=== PATIENT | female | born 1995 | race Caucasian/White ===

== ENCOUNTER 2017-08-24 00:06 | Emergency (ER) | payer BC ==
[~2017-08-24] VITALS: Ht 167.6 cm; Wt 58.3 kg
[2017-08-24 00:10] VITALS: Ht 167.6 cm; Wt 58.3 kg
[2017-08-24] MEDS ORDERED: BCPILLS PO (00:27)
--- NOTE | 2017-08-24 00:35 | EMERGENCY ROOM VISIT NOTE ---
History Report prepared by Jessee: Bethanie Ureña Under the Supervision of: Dr. Sammie Mcelroy M.D. First contact with patient: 00:14 Chief Complaint: ABDOMINAL PAIN Stated Complaint: SHARP PAIN IN SIDE,GETTING WORSE,BURNING W URINATI History of Present Illness The patient is a 22 year old female who presents to the Emergency Room with complaints of worsening right lower abdominal pain starting 2-2.5 hours ago. She describes the pain as sharp like someone is pushing on her abdomen. The pain started in the center of her abdomen and moved lower. She started having burning with urination 1 hour ago. She is also urinating more frequently. She did not have a fever when she checked 1.5 hours ago. She denies any chance of . Her period started today. She normally does not have any cramping with her period. Source of History: patient Onset: 2-2.5 hours ago Position: abdomen (RLQ) Quality: sharp Timing: worsening Associated Symptoms: + urinary symptoms, No fevers Review of Systems See HPI for pertinent positives & negatives. A total of 10 systems reviewed and were otherwise negative. Past Medical & Surgical Medical Problems: (1) No chronic problems Family History No pertinent family history stated. Social History Smoking Status: Never Smoker Marital Status: single Occupation Status: [employer] student Current/Historical Medications Scheduled Control Pills ( Control Pills), 1 TAB PO DAILY Ciprofloxacin Hcl (Cipro), 500 MG PO BID Scheduled PRN Phenazopyridine HCl (Pyridium), 200 MG PO TID PRN for Pain Allergies Coded Allergies: Penicillins (Verified Allergy, Unknown, rash, 08/24/17) Physical Exam Vital Signs Date Time Temp Pulse Resp B/P (MAP) Pulse Ox O2 Delivery O2 Flow Rate FiO2 08/24/17 04:04 37.0 90 18 112/74 100 Room Air 08/24/17 02:15 36.8 95 18 110/76 100 Room Air 08/24/17 00:10 37.0 102 18 116/81 100 Room Air Physical Exam Vital signs reviewed. General: Well-appearing female, in no significant distress. HEENT: No scleral icterus, PERRLA, neck supple. Atraumatic. Cardiovascular: Regular rate and rhythm, no extra sounds. Pulmonary: Clear to auscultation bilaterally, normal work of breathing. Abdomen: Soft, tender in the RLQ, nondistended, positive bowel sounds. Musculoskeletal: Atraumatic, no peripheral edema. Neurologic: Patient awake alert and oriented x 3 Skin: Warm, dry, no rash Medical Decision & Procedures ER Provider Diagnostic Interpretation: Radiology results as stated below per my review and [facility] radiologist interpretation: US Pelvic/Endovag: Anteflexed uterus measuring 7.9 x 2.7 x 4.0 cm. Endometrium measures 2 mm in thickness. No focal myometrial lesion. Nonspecific small amount of fluid in the cervix. Right ovary measures 2.7 x 2.6 x 1.3 cm with multiple follicles. Normal color Doppler flow. Left ovary measure 1.5 x 1.6 x 0.9 cm. Multiple follicles. Normal color Doppler flow. Nonspecific small amount of fluid in the right adnexa and cul-de-sac which could be physiologic. No adnexal mass. US Appendix: Appendix not visualized. No free fluid. Acute appendicitis cannot be entirely excluded on the basis of this exam alone. Further evaluation could be performed with CT or MRI if clinically indicated. CT Abdomen & Pelvis with Contrast: Punctate 2 mm nodule in the left lower lobe, possible calcified. Probable scarring in the right kidney with mild right hydroureter and suggestion of urothelial thickening and enhancement. No definite obstructing stone identified. Superimposed infection cannot be excluded. Bladder wall thickening. Please correlate with urinalysis to evaluate for cystitis. Air-fluid levels in the small bowel are nonspecific. Enteritis cannot be excluded. The appendix is difficult to definitively identify, but no evidence of inflammation to suggest acute appendicitis. Laboratory Results 08/24/17 00:30 Red Blood Count 4.39, Mean Corpuscular Volume 89.1, Mean Corpuscular Hemoglobin 30.1, Mean Corpuscular Hemoglobin Concent 33.8, Mean Platelet Volume 9.2, Neutrophils (%) (Auto) 78.5, Lymphocytes (%) (Auto) 14.6, Monocytes (%) (Auto) 6.0, Eosinophils (%) (Auto) 0.6, Basophils (%) (Auto) 0.2, Neutrophils # (Auto) 8.26, Lymphocytes # (Auto) 1.53, Monocytes # (Auto) 0.63, Eosinophils # (Auto) 0.06, Basophils # (Auto) 0.02 08/24/17 00:30 Test 08/24/17 00:20 08/24/17 00:30 08/24/17 02:44 Urine RBC >30 /hpf (0-4) Urine WBC >30 /hpf (0-5) Urine Epithelial Cells >30 /lpf (0-5) Urine Bacteria 1+ (NEG) Urine Test NEG (NEG) White Blood Count 10.51 K/uL (4.8-10.8) Red Blood Count 4.39 M/uL (4.2-5.4) Hemoglobin 13.2 g/dL (12.0-16.0) Hematocrit 39.1 % (37-47) Mean Corpuscular Volume 89.1 fL (80-100) Mean Corpuscular Hemoglobin 30.1 pg (25-34) Mean Corpuscular Hemoglobin Concent 33.8 g/dl (32-36) Platelet Count 239 K/uL (130-400) Mean Platelet Volume 9.2 fL (7.4-10.4) Neutrophils (%) (Auto) 78.5 % Lymphocytes (%) (Auto) 14.6 % Monocytes (%) (Auto) 6.0 % Eosinophils (%) (Auto) 0.6 % Basophils (%) (Auto) 0.2 % Neutrophils # (Auto) 8.26 K/uL (1.4-6.5) Lymphocytes # (Auto) 1.53 K/uL (1.2-3.4) Monocytes # (Auto) 0.63 K/uL (0.11-0.59) Eosinophils # (Auto) 0.06 K/uL (0-0.5) Basophils # (Auto) 0.02 K/uL (0-0.2) RDW Standard Deviation 42.0 fL (36.4-46.3) RDW Coefficient of Variation 12.9 % (11.5-14.5) Immature Granulocyte % (Auto) 0.1 % Immature Granulocyte # (Auto) 0.01 K/uL (0.00-0.02) Anion Gap 11.0 mmol/L (3-11) Est Creatinine Clear Calc Drug Dose 95.2 ml/min Estimated GFR () 111.9 Estimated GFR (Non- 96.6 BUN/Creatinine Ratio 13.8 (10-20) Calcium Level 8.5 mg/dl (8.5-10.1) Total Bilirubin 0.3 mg/dl (0.2-1) Direct Bilirubin 0.1 mg/dl (0-0.2) Aspartate Amino Transf (AST/SGOT) 17 U/L (15-37) Alanine Aminotransferase (ALT/SGPT) 22 U/L (12-78) Alkaline Phosphatase 55 U/L (45-117) Total Protein 7.1 gm/dl (6.4-8.2) Albumin 3.9 gm/dl (3.4-5.0) Chemistry Specimen Hemolysis Urine Color YELLOW Urine Appearance CLOUDY (CLEAR) Urine pH 5.5 (4.5-7.5) Urine Specific [place] 1.012 (1.000-1.030) Urine Protein NEG (NEG) Urine Glucose (UA) NEG (NEG) Urine Ketones NEG (NEG) Urine Occult Blood 3+ (NEG) Urine Nitrite NEG (NEG) Urine Bilirubin NEG (NEG) Urine Urobilinogen NEG (NEG) Urine Leukocyte Esterase LARGE (NEG) Urine WBC (Auto) >30 /hpf (0-5) Urine RBC (Auto) 10-30 /hpf (0-4) Urine Hyaline Casts (Auto) 0 /lpf (0-5) Urine Epithelial Cells (Auto) 10-20 /lpf (0-5) Urine Bacteria (Auto) NEG (NEG) Laboratory results per my review. Medications Administered Medications (Trade) Dose Ordered Sig/Felisa Route Start Time Stop Time Status Last Admin Dose Admin Ciprofloxacin (Cipro Tab) 500 mg NOW STAT PO 08/24/17 03:35 08/24/17 03:36 DC 08/24/17 03:41 500 MG Phenazopyridine HCl (Pyridium Tab) 200 mg NOW STAT PO 08/24/17 03:35 08/24/17 03:36 DC 08/24/17 03:41 200 MG Phenazopyridine HCl (Phenazopyridine HCl 200MG Home Pack) 1 homepack UD ONCE PO 08/24/17 04:00 08/24/17 04:01 DC 08/24/17 04:00 1 HOMEPACK ED Course 0022: Past medical records reviewed. The patient was evaluated in room A10. A complete history and physical examination was performed. 0234: I reevaluated the patient. I updated her on the results. She will go for CT. 0335: Pyridium Tab 200 mg PO, Ciprofloxacin 500 mg PO. 0342: Upon reevaluation, the patient was resting comfortably. I discussed findings with her. She verbalized agreement of the treatment plan. She was discharged home. 0400: Phenazopyridine HCl 1 homepack PO. Medical Decision Differential diagnosis: Etiologies such as appendicitis, diverticulitis, PUD, biliary pathology, UTI, pancreatitis, obstruction, mesenteric ischemia, aortic pathology, infections, inflammatory bowel disease, renal colic, as well as others were entertained. This patient was evaluated and appeared to be in significant discomfort. She states she had a sudden onset of right lower quadrant abdominal tenderness with some tenderness around the umbilicus. Ultrasound of the right lower quadrant to rule out appendectomy was ordered as well as a pelvic ultrasound. test is negative. Laboratory work is fairly unrevealing. An ultrasound reveals no significant abnormality of the pelvis. CT scan of the abdomen and pelvis was performed to rule out appendicitis versus renal calculi. Urinalysis initially given was contaminated grossly with menstrual bleeding. A repeat UA was performed and is improved from the contamination standpoint. Patient likely is suffering from a UTI based on the CT scan read in the urinalysis. Patient was placed on Cipro 500 mg twice daily for 7 days. She will drink plenty of fluids, use ibuprofen as needed for pain and follow-up with her PCP or [facility] this week. She will return to the ER for worsening of symptoms or any medical concerns. Medication Reconcilliation Current Medication List: was personally reviewed by me Blood Pressure Screening Patient's blood pressure: Normal blood pressure Blood pressure disposition: Did not require urgent referral Impression Primary Impression: UTI (urinary tract infection) Scribe Attestation The scribe's documentation has been prepared under my direction and personally reviewed by me in its entirety. I confirm that the note above accurately reflects all work, treatment, procedures, and medical decision making performed by me. Departure Information Dispostion Home / Self-Care Prescriptions Phenazopyridine HCl (Pyridium) 200 Mg Tab 200 MG PO TID Y for Pain, #3 TAB Prov: Sammie Mcelroy M.D. 08/24/17 Ciprofloxacin Hcl (CIPRO) 500 Mg Tab 500 MG PO BID, #14 TAB Prov: Sammie Mcelroy M.D. 08/24/17 Referrals [facility] Forms HOME CARE DOCUMENTATION FORM, IMPORTANT VISIT INFORMATION Patient Instructions My [facility], UTI Additional Instructions Diagnosis: UTI Cipro 500 mg twice daily for 7 days. Drink plenty of clear fluids. Pyridium 200 mg every 8 hours as needed for urinary symptoms. This medication will turn tears and urine orange. Avoid contacts in the eyes. Follow up with [facility] if needed for continued symptoms Return to the ED for worsening of symptoms or any medical concerns.
[2017-08-24 00:40] LABS: BASO % 0.2 %; BASO ABS # 0.02 K/uL (0-0.2); COMPLETE YES; EOS % 0.6 %; HEMATOCRIT 39.1 % (37-47); IG% 0.1 %; LYMPH % 14.6 %; LYMPH ABS # 1.53 K/uL (1.2-3.4); MEAN CELL VOLUME 89.1 fL (80-100); MEAN CORPUSCULAR HEMOGLOBIN 30.1 pg (25-34); MEAN CORPUSCULAR HGB CONC 33.8 g/dl (32-36); MEAN PLATELET VOLUME 9.2 fL (7.4-10.4); NEUT % 78.5 %; PLATELET COUNT 239 K/uL (130-400); RED BLOOD COUNT 4.39 M/uL (4.2-5.4); WHITE BLOOD COUNT 10.51 K/uL (4.8-10.8)
[2017-08-24 00:53] LABS: MANUAL MICROSCOPIC REQUIRED? YES; URINE APPEARANCE CLOUDY (CLEAR); URINE BILIRUBIN NEG (NEG); URINE COLOR RED; URINE NITRITE NEG (NEG); URINE PH 6.5 (4.5-7.5); URINE SPECIFIC GRAVITY 1.025 (1.000-1.030); UROBILINOGEN NEG (NEG)
[2017-08-24 00:54] LABS: REVIEW REQ? NO
[2017-08-24 00:55] LABS: URINE RBC >30 /hpf (0-4); URINE WBC >30 /hpf (0-5)
[2017-08-24 00:56] LABS: URINE BACTERIA 1+ (NEG); ZZUR CULT IF INDIC CLEAN CATCH YES
[2017-08-24 01:01] LABS: BUN/CREATININE RATIO 13.8 (10-20); CALCIUM 8.5 mg/dl (8.5-10.1); CREATININE 0.86 mg/dl (0.60-1.20)
[2017-08-24 01:11] LABS: POTASSIUM 3.3 mmol/L (3.5-5.1)
[2017-08-24] MEDS ORDERED: OPTIRAY 320 IV PRN (02:45)
[2017-08-24 03:07] LABS: URINE APPEARANCE CLOUDY (CLEAR); URINE BILIRUBIN NEG (NEG); URINE COLOR YELLOW; URINE NITRITE NEG (NEG); URINE PH 5.5 (4.5-7.5); URINE SPECIFIC GRAVITY 1.012 (1.000-1.030); UROBILINOGEN NEG (NEG); ZZUR CULT IF INDIC CLEAN CATCH YES
[2017-08-24 03:12] LABS: MANUAL MICROSCOPIC REQUIRED? NO; REVIEW REQ? YES
[2017-08-24] MEDS ORDERED: CIPROFLOXACIN 500 MG TAB PO STA (03:35)
[2017-08-24] MEDS ORDERED: PHENAZOPYRIDINE HCL 200 MG TAB PO STA (03:35)
[2017-08-24] MEDS ORDERED: CIPR-255 PO (03:46)
[2017-08-24] MEDS ORDERED: PHEN-876 PO (03:48)
[2017-08-24] MEDS ORDERED: PHENAZOPYRIDINE HOME PACK 200 MG VIAL PO ONE (04:00)
[2017-08-24 04:04] VITALS: BP 112/74; PULSE 90; TEMP 37; O2SAT 100
--- NOTE | 2017-08-24 06:44 | DIAGNOSTIC IMAGING REPORT ---
ABDOMEN LIMITED (US) HISTORY: 22 years-old Female appy acute right lower quadrant abdominal pain with concern for acute appendicitis COMPARISON: CT abdomen and pelvis of same day TECHNIQUE: Multiple real-time sonographic images of the abdominal right lower quadrant were obtained assessing grayscale appearance and color flow. FINDINGS: Shadowing bowel gas is noted within the right lower quadrant of the abdomen. The appendix is not definitively seen. No no echogenic or hyperemic mesenteric fat, focal fluid collections or hypoperistaltic bowel identified. IMPRESSION: Appendix not visualized. No secondary signs of acute appendicitis. The above report was generated using voice recognition software. It may contain grammatical, syntax or spelling errors. Electronically signed by: Aleks Cortés M.D. 08/24/2017 6:43 AM Dictated Date/Time: 08/24/2017 6:40 AM
--- NOTE | 2017-08-24 06:56 | DIAGNOSTIC IMAGING REPORT ---
ABDOMEN AND PELVIS CT WITH IV CONTRAST CT DOSE: 287.25 mGy.cm HISTORY: Acute right lower quadrant abdominal pain appy TECHNIQUE: Multiaxial CT images of the abdomen and pelvis were performed following the use of intravenous contrast. 93 mL Optiray 320 IV contrast was administered. A dose lowering technique was utilized adhering to the principles of ALARA. COMPARISON STUDY: Pelvic and abdominal ultrasounds of same day. FINDINGS: Lung bases are clear with the exception of a calcified granuloma of the posterior basal segment left lower lobe abutting the pleural surface. No pneumoperitoneum identified. The imaged inferior cardiac chambers are unremarkable. The liver, gallbladder, spleen, pancreas and adrenal glands are within normal limits. Multifocal cortical scarring seen throughout the right kidney. There is mild dilation of the right ureter with periureteral inflammatory stranding and urothelial enhancement extending from the renal pelvis to the ureterovesicular junction. There is also mild residual thickening of the distal left ureter. Moderate wall thickening with mucosal hyperemia involves the urinary bladder with mild perivesicular inflammatory stranding. No renal calculi. Trace free pelvic fluid. Uterus and adnexa are within normal limits. The abdominal aorta is normal in both course and caliber. There is no bulky adenopathy. There is no bowel obstruction or focal bowel wall thickening. Several nondilated fluid-filled loops of small bowel are seen with air-fluid levels suggesting ileus. The appendix is not definitively seen. No secondary signs of acute appendicitis. Soft tissues are unremarkable. Bones appear intact. IMPRESSION: 1. Multifocal parenchymal scarring throughout the right kidney. Mild dilation of the right ureter extending from the ureteropelvic junction to the ureterovesicular junction with associated surrounding inflammatory stranding and urothelial enhancement suggests ureteritis. There is also probable cystitis without obstructing calculus identified. Correlate with urinalysis. 2. Appendix not definitively visualized. No secondary signs of acute appendicitis. 3. Several air-fluid levels throughout nondilated loops of small bowel suggest ileus or enteritis. 4. Trace free pelvic fluid, likely physiologic. Electronically signed by: Aleks Cortés M.D. 08/24/2017 6:55 AM Dictated Date/Time: 08/24/2017 6:47 AM
--- NOTE | 2017-08-24 07:07 | DIAGNOSTIC IMAGING REPORT ---
PELVIC COMPLETE NON OB HISTORY: 22 years-old Female RLQ abd pain, cyst acute right lower quadrant abdominal pain COMPARISON: CT abdomen and pelvis 08/24/2017 TECHNIQUE: Multiple real-time sonographic images of the deep pelvic structures were obtained transabdominally and transvaginally assessing grayscale appearance, color and spectral flow FINDINGS: TRANSABDOMINAL: Pelvic structures are not well seen. TRANSVAGINAL: Anteflexed uterus measures 7.9 x 2.7 x 4.0 cm and is unremarkable with multiple follicles. No myometrial mass lesions identified. Endometrium is homogeneous, 2 mm in thickness. Trace nonspecific fluid of the endocervical canal. Right ovary measures 2.7 x 2.6 x 1.3 cm and is unremarkable with arterial inflow documented. Left ovary measures 1.5 x 1.6 x 0.9 cm with follicles present. Arterial inflow is also documented within the left ovary. Nonspecific free pelvic fluid adjacent to the right adnexa and also within the cul-de-sac is likely physiologic. IMPRESSION: 1. Unremarkable sonographic appearance of the uterus, endometrium and bilateral ovaries without evidence of torsion. 2. Trace fluid of the endocervical canal and also adjacent to the right adnexa and within the cul-de-sac is nonspecific and likely physiologic. The above report was generated using voice recognition software. It may contain grammatical, syntax or spelling errors. Electronically signed by: Aleks Cortés M.D. 08/24/2017 7:06 AM Dictated Date/Time: 08/24/2017 7:03 AM
--- NOTE | 2017-08-26 11:17 | Pharmacy Progress Note ---
ED Pharmacist Culture FollowUp Date of Service: Aug 26, 2017. Patient was sent home with a prescription for ciprofloxacin, which should cover the E. coli growing from the patient's urine culture.
== END 2017-08-24 04:05 | disposition home or self-care (01) ==
LOC: C.EDB 00:08 → C.EDA 04:05
DX: N39.0 Urinary tract infection, site not specified (principal)